=== PATIENT | male | born 1940 | race Caucasian/White ===

== ENCOUNTER 2018-05-15 15:27 | Emergency (ER) | payer MEDICARE, BC ==
[2018-05-15 16:40] LABS: Hemoglobin 10.7 g/dL (14.0-18.0); Mean Corpuscular HGB CONC 33.1 g/dL (32.0-36.0); Mean Corpuscular Hemoglobin 34.6 pg (27.0-31.0); Platelet Count 178 thou/uL (130-400); White Blood Cell (WBC) Count 4.2 thou/uL (4.8-10.8)
[2018-05-15 16:59] LABS: ALT (SGPT) 11 U/L (8-55); AST (SGOT) 13 U/L (5-34); Albumin 3.7 g/dL (3.4-4.8); Alkaline Phosphatase 65 U/L (40-150); Anion Gap 11 mmol/L (10-20); BUN (Urea Nitrogen) 27 mg/dL (8.4-25.7); Bilirubin, Total 0.3 mg/dL (0.2-1.2); Calc. Creatinine Clearance 0 mL/min (70-130); Calcium 8.9 mg/dL (7.8-10.44); Carbon Dioxide 24 mmol/L (23-31); Chloride 111 mmol/L (98-107); Estimated GFR-MDRD 35; Globulin 3.1 g/dL (2.4-3.5); Glucose 100 mg/dL (83-110); Potassium 4.7 mmol/L (3.5-5.1); Protein, Total 6.8 g/dL (5.8-8.1); Sodium 141 mmol/L (136-145)
[2018-05-15 17:01] LABS: #Eosinphils 0.1 thou/uL (0.0-0.7); #Lymphocytes 1.1 thou/uL (1.20-3.40); #Monocytes 0.5 thou/uL (0.11-0.59); #Neutrophils 2.6 thou/uL (1.40-6.50); %Basophils 0.3 % (0.0-1.0); %Eosinophils 1.3 % (0.0-10.0); %Lymphocytes 25.1 % (21.0-51.0); %Monocytes 12.4 % (0.0-10.0); %Neutrophils 60.8 % (42.0-75.0); MDiff Complete? YES; Macrocytosis SLIGHT = 6-15 cells (100X) (0-5/hpf); PLT Morphology Comment Appears Adequate
[2018-05-15] MEDS ORDERED: Rivaroxaban 10 MG TAB PO SCH (18:30)
--- NOTE | 2018-05-20 14:57 | EKG ---
Test Reason : IRREGULAR HR Blood Pressure : / mmHG Vent. Rate : 088 BPM Atrial Rate : 441 BPM P-R Int : 000 ms QRS Dur : 090 ms QT Int : 356 ms P-R-T Axes : 000 078 035 degrees QTc Int : 430 ms Atrial fibrillation Low voltage QRS Abnormal ECG Confirmed by MAGDALENO NICE D.O. ([id number]), tape editor YASHIRA ANDRE ([id number]) on 05/20/2018 2:56:51 PM Referred By: Confirmed By:MAGDALENO NICE D.O.
== END 2018-05-15 18:41 | disposition home or self-care (01) ==
LOC: ERS 15:27
DX: I48.91 Unspecified atrial fibrillation (principal); I10 Essential (primary) hypertension; F17.200 Nicotine dependence, unspecified, uncomplicated
CPT/HCPCS: 36415; 80053; 83880; 84484; 85025; 93005